=== PATIENT | male | born 1985 | race Caucasian/White ===

== ENCOUNTER 2017-05-05 11:15 | Emergency (ER) | payer OTHER ==
[~2017-05-05] VITALS: Ht 188 cm; Wt 109.1 kg
[~2017-05-05 11:15] MED LIST: OXYC-284 PO; PRE20 PO; [UNRECOGNIZED DRUG - CODE] LEFT_EYE
[2017-05-05 11:24] VITALS: BP 158/102; PULSE 127; RESP 22; O2SAT 97
[2017-05-05] MEDS ORDERED: HYDROmorphone 1 mg/mL Inj IVPUSH ONE ×4 (11:25→14:10)
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
[2017-05-05] MEDS: Ondansetron 2 mg/mL 2 mL Inj IVPUSH PRN ×2 (11:42→12:00)
[2017-05-05] MEDS: HYDROmorphone 1 mg/mL Inj IVPUSH PRN ×3 (11:42→15:26)
[2017-05-05] MEDS ORDERED: Lidocaine Topical 2% 30 mL Jelly ONE ×3 (12:45→13:02)
[2017-05-05] MEDS ORDERED: Lidocaine 2% 5 mL Topical Jelly TOPICAL ONE (12:55)
[2017-05-05] MEDS ORDERED: HYDROmorphone 1 mg/mL Inj IVPUSH PRN (12:55)
[2017-05-05] MEDS ORDERED: Bacitracin Zinc 15 Gm Ointment TOPICAL ONE (14:45)
[2017-05-05] MEDS ORDERED: BACI28.4 TP (14:56)
[2017-05-05] MEDS ORDERED: OXYC-474 PO (14:56)
[2017-05-05] MEDS ORDERED: OXYC15TA45 PO (14:56)
[2017-05-05 16:16] VITALS: BP 144/88; PULSE 90; RESP 18; O2SAT 98
== END 2017-05-05 16:15 | disposition home or self-care (01) ==
LOC: SED 11:15
DX: T24.212A Burn of second degree of left thigh, initial encounter (principal); T24.211A Burn of second degree of right thigh, initial encounter; T24.331A Burn of third degree of right lower leg, initial encounter; W40.8XXA Explosion of other specified explosive materials, initial encounter; Y93.89 Activity, other specified; Y92.9 Unspecified place or not applicable; Y99.8 Other external cause status; T31.0 Burns involving less than 10% of body surface
CPT/HCPCS: 96361; 96374; 96375; 96376; 99284; G0463; J1170; J1885; J2405

== ENCOUNTER 2017-05-07 11:02 | Emergency (ER) | payer OTHER ==
[~2017-05-07] VITALS: Ht 188 cm; Wt 104.5 kg
[~2017-05-07 11:02] MED LIST changes: +BACI28.4 TP; +OXYC-474 PO; +OXYC15TA45 PO
[2017-05-07 11:13] VITALS: BP 130/87; PULSE 70; RESP 16; O2SAT 100
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
[2017-05-07] MEDS ORDERED: CEPH500T PO (11:51)
[2017-05-07 12:27] VITALS: BP 118/66; PULSE 74
== END 2017-05-07 12:28 | disposition home or self-care (01) ==
LOC: SED 11:02
DX: Z51.89 Encounter for other specified aftercare (principal)